=== PATIENT | female | born 1985 | race Caucasian/White ===

== ENCOUNTER 2017-02-07 21:10 | Emergency (ER) | payer OTHER ==
[2017-02-07 21:24] VITALS: BP 138/95; PULSE 83; TEMP 98.4; BMI 37.5
[2017-02-07] MEDS ORDERED: AZITHROMYCIN 250 MG TABLET (FP) ONE (21:55)
--- NOTE | 2017-02-07 21:55 | PDOC ---
History of Present Illness - General History Source: Patient, Old Records Exam Limitations: No Limitations - History of Present Illness Initial Comments: 02/07/17 21:59 The patient is a 31 year old female with no significant past medical history who presents to the emergency department with a sore throat for one week. The patient states that her sore throat has been worsening recently. She reports associated bilateral swollen tonsil and notes that the pain is now radiating to her left ear. The patient has been trying to treat symptoms at home with no relief. She denies any recent sick contacts. She denies nausea, fever, vomiting , and diarrhea. <Alok Mittal - Last Filed: 02/07/17 21:59> - General History Source: Patient Exam Limitations: No Limitations <William Gonzalez - Last Filed: 02/07/17 22:06> - General Chief Complaint: Sore Throat Stated Complaint: TONSIL PAIN Time Seen by Provider: 02/07/17 21:21 Past History <Alok Mittal - Last Filed: 02/07/17 21:59> - Psycho/Social/Smoking Cessation Hx Anxiety: No Suicidal Ideation: No Smoking Status: No Smoking History: Former smoker Have you smoked in the past 12 months: No Number of Cigarettes Smoked Daily: 0 Information on smoking cessation initiated: No Hx Alcohol Use: Yes (SOCIAL) Drug/Substance Use Hx: No Substance Use Type: None <William Gonzalez - Last Filed: 02/07/17 22:06> - Past Medical History Allergies/Adverse Reactions: Allergies Allergy/AdvReac Type Severity Reaction Status Date / Time Penicillins Allergy Rash Verified 02/07/17 21:20 Home Medications: Ambulatory Orders Azithromycin 250 mg PO DAILY #4 tablet 02/07/17 Review of Systems - Review of Systems Able to Perform ROS?: Yes Comments:: 02/07/17 21:59 GENERAL/CONSTITUTIONAL: No fever or chills. No weakness. HEAD, EYES, EARS, NOSE AND THROAT: (+) No change in vision. No ear discharge. Sore throat. Swollen tonsils. Left ear pain. CARDIOVASCULAR: No chest pain or shortness of breath. RESPIRATORY: No cough, wheezing, or hemoptysis. GASTROINTESTINAL: No nausea, vomiting, diarrhea or constipation. GENITOURINARY: No dysuria, frequency, or change in urination. MUSCULOSKELETAL: No joint or muscle swelling or pain. No neck or back pain. SKIN: No rash NEUROLOGIC: No headache, vertigo, loss of consciousness, or change in strength/ sensation. ENDOCRINE: No increased thirst. No abnormal weight change. HEMATOLOGIC/LYMPHATIC: No anemia, easy bleeding, or history of blood clots. ALLERGIC/IMMUNOLOGIC: No hives or skin allergy. <Alok Mittal - Last Filed: 02/07/17 21:59> *Physical Exam - Vital Signs Last Vital Signs Temp Pulse Resp BP Pulse Ox 98.4 F 83 15 138/95 97 02/07/17 21:19 02/07/17 21:19 02/07/17 21:19 02/07/17 21:19 02/07/17 21:19 - Physical Exam Comments: 02/07/17 22:00 GENERAL: Awake, alert, and fully oriented, in no acute distress HEAD: No signs of trauma EYES: PERRLA, EOMI, sclera anicteric, conjunctiva clear ENT: (+) Auricles normal inspection, hearing grossly normal, nares patent, erythema of posterior pharynx without exudates. Moist mucosa NECK: Normal ROM, supple, no lymphadenopathy, JVD, or masses LUNGS: Breath sounds equal, clear to auscultation bilaterally. No wheezes, and no crackles HEART: Regular rate and rhythm, normal S1 and S2, no murmurs, rubs or gallops ABDOMEN: Soft, nontender, normoactive bowel sounds. No guarding, no rebound. No masses EXTREMITIES: Normal range of motion, no edema. No clubbing or cyanosis. No cords, erythema, or tenderness NEUROLOGICAL: Cranial nerves II through XII grossly intact. Normal speech, normal gait SKIN: Warm, Dry, normal turgor, no rashes or lesions noted. <Alok Mittal - Last Filed: 02/07/17 21:59> - Vital Signs Last Vital Signs Temp Pulse Resp BP Pulse Ox 98.4 F 83 15 138/95 97 02/07/17 21:19 02/07/17 21:19 02/07/17 21:19 02/07/17 21:19 02/07/17 21:19 <William Gonzalez - Last Filed: 02/07/17 22:06> ED Treatment Course - ADDITIONAL ORDERS Additional order review: 02/07/17 21:25 Group A Strep Rapid Antigen - Final Throat NEGATIVE FOR THE ANTIGEN OF BETA HEMOLYTIC STREP GROUP A - Medications Given in the ED: ED Medications Discontinued Medications Generic Name Dose Route Start Last Admin Trade Name Snow PRN Reason Stop Dose Admin Azithromycin 500 mg 02/07/17 21:56 02/07/17 21:58 Zithromax - PO 02/07/17 21:57 500 mg ONCE ONE Administration <Alok Mittal - Last Filed: 02/07/17 21:59> - ADDITIONAL ORDERS Additional order review: 02/07/17 21:25 Group A Strep Rapid Antigen - Final Throat NEGATIVE FOR THE ANTIGEN OF BETA HEMOLYTIC STREP GROUP A <William Gonzalez - Last Filed: 02/07/17 22:06> Medical Decision Making - Medical Decision Making 02/07/17 22:02 A portion of this note was documented by scribe services under my direction. I have reviewed the details of the note, within reason, and agree with the documentation with the following case summary and management plan written by me. Patient treated in the ED. Nursing notes are reviewed and incorporated into the medical decision-making. Vital signs reviewed. Peripheral IV access obtained by the nurse, laboratory studies are drawn and sent, reviewed and interpreted by myself. Vital Signs Temp Pulse Resp BP Pulse Ox 98.4 F 83 15 138/95 97 02/07/17 21:19 02/07/17 21:19 02/07/17 21:19 02/07/17 21:19 02/07/17 21:19 31-year-old female with no past medical history presents to the emergency department for sore throat for one week. Patient reports that the pain is constant and states now is radiating to her left ear. Denies fevers or chills. Denies cough. Denies sick contacts. The patient has an erythematous throat. Rapid strep is negative. However, with erythema and the duration of symptoms, we'll initiate empiric azithromycin. Supportive care and follow with PMD. I discussed the physical exam findings, ancillary test results and final diagnoses with the patient. I answered all of the patient's questions. The patient was satisfied with the care received and felt comfortable with the discharge plan and treatment plan. The patient will call their primary care physician within 24 hours to arrange follow-up and will return to the Emergency Department with any new, persistant or worsening symptoms. <William Gonzalez - Last Filed: 02/07/17 22:06> *DC/Admit/Observation/Transfer - Attestations Scribe Attestion: 02/07/17 22:00 Documentation prepared by Alok Mittal, acting as durable medical equipment repairer for William Gonzalez MD. <Alok Mittal - Last Filed: 02/07/17 21:59> - Discharge Dispostion Admit: No <William Gonzalez - Last Filed: 02/07/17 22:06> Diagnosis at time of Disposition: Pharyngitis Qualifiers: Pharyngitis/tonsillitis etiology: unspecified etiology Qualified Code(s): J02.9 - Acute pharyngitis, unspecified - Discharge Dispostion Disposition: HOME Condition at time of disposition: Good - Prescriptions Prescriptions: Azithromycin 250 mg PO DAILY #4 tablet - Patient Instructions Printed Discharge Instructions: DI for Pharyngitis/Tonsillopharyngitis -- Adult Additional Instructions: Please call back in 48 to 72 hours for the throat culture results. Call [phone]. Please take the azithromycin as prescribed. Complete the antibiotics. Take 600 mg ibuprofen every 6 hours as needed for pain. Follow up with your doctor.
[2017-02-07] MEDS ORDERED: AZITHROMYCIN 250 MG TABLET (FP) PO ONE (21:56)
== END 2017-02-07 22:02 | disposition home or self-care (01) ==
LOC: FER 21:10
DX: J02.9 Acute pharyngitis, unspecified (principal); Z87.891 Personal history of nicotine dependence
CPT/HCPCS: 87070; 87430; 99281-25

== ENCOUNTER 2018-02-05 16:43 | Emergency (ER) | payer OTHER ==
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
[2018-02-05 17:04] VITALS: BP 140/99; PULSE 108; TEMP 98.4; BMI 34.4
[2018-02-05] MEDS ORDERED: IBUPROFEN 400 MG TABLET (FP) PO ONE ×2 (17:30→17:32)
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
== END 2018-02-05 17:38 | disposition home or self-care (01) ==
LOC: JERFT 16:43
DX: S39.82XA Other specified injuries of lower back, initial encounter (principal); V43.52XA Car driver injured in collision with other type car in traffic accident, initial encounter; Y92.488 Other paved roadways as the place of occurrence of the external cause; Y93.89 Activity, other specified; Y99.8 Other external cause status
CPT/HCPCS: 99281-25

== ENCOUNTER 2020-07-01 16:22 | Emergency (ER) | payer OTHER ==
[2020-07-01 16:27] VITALS: BP 134/93; PULSE 74; TEMP 97.9; BMI 33.6
[2020-07-01] MEDS ORDERED: IBUPROFEN 400 MG TABLET (FP) PO ONE ×2 (16:46→16:56)
[2020-07-01] MEDS ORDERED: ACETAMINOPHEN 500 MG TABLET (FP) PO ONE (16:47)
[2020-07-01] MEDS ORDERED: ACETAMINOPHEN 325 MG TABLET (FP) ONE (16:56)
[2020-07-01] MEDS ORDERED: LIDOCAINE 5% TOPICAL PATCH TP ONE (17:09)
[2020-07-01] MEDS ORDERED: LIDOCAINE 5% TOPICAL PATCH ONE (17:11)
[2020-07-01] MEDS ORDERED: LIDOCAINE PATCH REMOVAL MC SCH (22:00)
== END 2020-07-01 17:25 | disposition home or self-care (01) ==
LOC: FER 16:22
DX: M54.5 Low back pain (principal)
CPT/HCPCS: 99283-25